=== PATIENT | female | born 1955 ===

== ENCOUNTER 2018-08-28 09:00 | Inpatient (IN) | payer OTHER ==
[~2018-08-28] VITALS: Ht 162.6 cm; Wt 68.0 kg
[2018-08-28] MEDS ORDERED: LEVO-T25 MCG PO (10:50)
[2018-08-28] MEDS ORDERED: ZOCOR20 MG PO (10:50)
[2018-08-28] MEDS ORDERED: AMBIEN CR12.5 MG PO (10:51)
== END 2018-09-06 17:33 | disposition home or self-care (01) | DRG 330 ==
LOC: SURH 09-03 05:00 → O/R 09-03 05:00 → SURH 09-03 07:00 → EDBD 09-03 09:00 → SURH 09-03 10:57
PROVIDERS: ADMIT Colon & Rectal Surgery
PROC: 0WUF47Z Supplement Abdominal Wall with Autologous Tissue Substitute, Percutaneous Endoscopic Approach (ICD-10-PCS; 2018-09-03)
PROC: 0DJD8ZZ Inspection of Lower Intestinal Tract, Via Natural or Artificial Opening Endoscopic (ICD-10-PCS; 2018-09-03)
PROC: 0TQB4ZZ Repair Bladder, Percutaneous Endoscopic Approach (ICD-10-PCS; 2018-09-03)
PROC: 0DTN4ZZ Resection of Sigmoid Colon, Percutaneous Endoscopic Approach (ICD-10-PCS; principal; 2018-09-03 07:00)
DX: K57.32 Diverticulitis of large intestine without perforation or abscess without bleeding (principal); N82.3 Fistula of vagina to large intestine; N99.72 Accidental puncture and laceration of a genitourinary system organ or structure during other procedure; E78.00 Pure hypercholesterolemia, unspecified